=== PATIENT | male | born 1970 | race Caucasian/White ===

== ENCOUNTER 2017-04-15 15:22 | Emergency (ER) | payer OTHER, MEDICAID ==
[~2017-04-15] VITALS: Ht 182.9 cm; Wt 106.4 kg
[~2017-04-15 15:22] MED LIST: CELE100 PO; CLIN150 PO; CLON1 PO; LISI-587 PO; METO50CR PO; SUBO8MIS SL
[2017-04-15 15:44] VITALS: BP 132/59; PULSE 100; RESP 16; TEMP 98.5; O2SAT 98
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
[2017-04-15] MEDS ORDERED: ROBA500T PO (17:28)
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
== END 2017-04-15 17:38 | disposition home or self-care (01) ==
LOC: PHEFT 15:22
DX: S29.012A Strain of muscle and tendon of back wall of thorax, initial encounter (principal); M47.9 Spondylosis, unspecified; F32.9 Major depressive disorder, single episode, unspecified; I10 Essential (primary) hypertension; F17.200 Nicotine dependence, unspecified, uncomplicated; V49.9XXA Car occupant (driver) (passenger) injured in unspecified traffic accident, initial encounter; Z79.899 Other long term (current) drug therapy
CPT/HCPCS: 72125; 99283